=== PATIENT | female | born 1990 | race African-American/Black ===

== ENCOUNTER 2023-05-17 09:59 | Outpatient (CLI) | payer BC, SELFPAY ==
[2023-05-17 14:55] LABS: Chlamydia DNA Amplified* NOT DETECTED (No Detected); GC DNA Amplified* NOT DETECTED (No Detected)
== END 2023-05-17 10:00 | disposition home or self-care (01) ==
PROVIDERS: Visit Provider Physician Assistant
DX: Z11.3 Encounter for screening for infections with a predominantly sexual mode of transmission (principal)
CPT/HCPCS: 86592; 86703; 86803; 87340; 87491; 87591

== ENCOUNTER 2023-06-01 10:30 | Outpatient (CLI) | payer BC, SELFPAY ==
--- NOTE | 2023-06-01 10:45 | US_ITS ---
Patient: NEELAM TORREZ Facility:?[facility] Patient ID:?[id number] Site Patient ID:?[id number]. Site :?[id number] Study:?US-Pelvis TA/TV-06/01/2023 11:37:14 AM Ordering Physician:MYA Final Report: INDICATION: Menorrhagia COMPARISON: none TECHNIQUE: 2D finn scale and color Doppler images were acquired of the pelvis using a transabdominal and transvaginal approach. FINDINGS: Multiple exophytic/partially exophytic fundal fibroids are present measuring 4.5 x 4.2 x 4.3 cm on the right, 3.4 x 2.9 x 3.2 cm on the left and 2.1 x 1.7 x 2.1 in the midline. Additional left posterior lower uterine segment submucosal fibroid is present measuring 2.9 x 2.5 x 2.6 cm. Uterus measures 8.7 cm in length by 5.1 cm in AP diameter by 4.8 cm in transverse dimension. The endometrial lining measures 11 mm in composite thickness. The right ovary measures 3.6 x 2.2 x 2.6 cm in size and the left ovary measures 3.1 x 1.9 x 1.6 cm. The ovaries demonstrate normal arterial and venous blood flow on color Doppler analysis. There are no suspicious fluid collections within the cul-de-sac. IMPRESSION: Multiple uterine fibroids measuring up to 4.5 cm. 2.9 cm left posterior lower uterine segment submucosal fibroid is also present. Endometrial thickness 11 millimeters. Dictated by Nathanael Barriga MD @ 06/01/2023 12:44:44 PM Signed by:?Nathanael Barriga MD @06/01/2023 12:44:44 PM (Electronic Signature)
== END 2023-06-01 10:31 | disposition home or self-care (01) ==
LOC: US 10:30
PROVIDERS: Visit Provider Physician Assistant
DX: N92.1 Excessive and frequent menstruation with irregular cycle (principal); D25.0 Submucous leiomyoma of uterus; R93.89 Abnormal findings on diagnostic imaging of other specified body structures; N97.9 Female infertility, unspecified
CPT/HCPCS: 76830; 76856

== ENCOUNTER 2023-06-15 10:16 | Outpatient (CLI) | payer BC, SELFPAY | END 2023-06-15 10:17 | disposition home or self-care (01) | LOC: NFLDREF 06-16 08:00 | PROVIDERS: Visit Provider Obstetrics & Gynecology | DX: N97.9 Female infertility, unspecified (principal) | CPT/HCPCS: 82670; 83001; 83002; 84146; 84443 ==

== ENCOUNTER 2023-06-28 10:33 | Outpatient (CLI) | payer BC, SELFPAY | END 2023-06-28 10:34 | disposition home or self-care (01) | PROVIDERS: PCP Physician Assistant; Visit Provider Physician Assistant | DX: N97.9 Female infertility, unspecified (principal) | CPT/HCPCS: 83498; 84270; 84402; 84403 ==

== ENCOUNTER 2023-07-16 06:14 | Day surgery (SDC) | payer BC, SELFPAY ==
[2023-07-16] MEDS: LACTATED RINGERS 1000 ML 1,000 ML 100 ML IV (06:15)
[2023-07-16 06:25] VITALS: BP 146/100; PULSE 87; RESP 16; TEMP 37; O2SAT 98; BMI 43.9
[2023-07-16] MEDS: SODIUM CHLORIDE 0.9 % (FLUSH) 10 ML SYRINGE IVF (06:33)
[2023-07-16 06:51] LABS: Ur HCG Qualitative* Negative (Negative)
--- NOTE | 2023-07-16 07:19 | PM.PROC ---
Procedure Note Time Seen by Provider: 07:59 Date Seen: 07/16/23 Date of procedure: 07/16/[address] [facility] bill your pro fee for this procedure?: Yes Procedure: Preoperative diagnosis: 33 year-old nulligravid woman with uterine fibroids Postoperative diagnosis: Same Procedure: Hysteroscopy, Dilation and Curettage using the Truclear incisor Anesthesia: Conscious sedation, paracervical block. Surgeon: Alison Fischer MD Grievance And Appeals Specialist: None Estimated blood loss: 3 mL IV Fluid: 400 mL Specimen: Endometrial curettings to pathology. Findings: Exam under anesthesia: Uterus: anteverted position, less than 10-12 week sized, mobile, with no masses or nodularity palpable. Uterus sounded to 10 cm. No adnexal masses or nodularity palpable. On hysteroscopy: Appeared normal. There was no evidence of uterine fibroid in the submucosa which was unexpected by ultrasound findings. Procedure: The patient was taken to the operating operating room more conscious sedation was found to be adequate. The patient was placed on in the dorsal lithotomy position and an exam under anesthesia was performed with findings stated above. She was then prepped and draped in a normal sterile manner. A bivalve speculum was placed in the vagina. The cervix appears nulliparous. Otherwise no abnormalities. The paracervical block was placed using 0.5% Marcaine, 5 mL was injected at the 4 and 8 o'clock positions on the cervix. The anterior lip of the cervix was grasped with a single-tooth tenaculum. The cervix dilated to Hegar 6. The uterus sounded to 10 cm. The Truclear hysteroscope was advanced into the uterus. A diagnostic hysteroscopy was performed with normal saline as the insufflation medium. Findings are stated above. The Truclear incisor was then advanced through the camera. The curettage was performed with the incisor over an approximately 1 minute. The incisor was then removed. The endometrial cavity appeared normal. Saline deficit at the end of the procedure 245 mL. Total saline used 50 mL. The hysteroscope, single-toothed tenaculum and speculum were removed from the vaginal canal.Silver nitrate was used to obtain hemostasis. The patient tolerated the procedure well. Sponge, lap and instrument counts were correct x2 at the end of the procedure. The patient was taken to the recovery area in stable condition.
[2023-07-16] MEDS: CEFAZOLIN 2 GM INJ IVP (07:40)
[2023-07-16] MEDS: BUPIVACAINE 0.5% 30 ML INJECTION (07:44)
[2023-07-16] MEDS: SILVER NITRATE APPLICATOR 1 EACH STICK..EA. TOPICAL (07:52)
--- NOTE | 2023-07-16 08:05 | W.ANESCHARGE ---
Anesthesia Charges Start Date/Time Anesthesia Start Date: 07/16/23 Anesthesia Start Time: 07:14 Stop Date/Time Anesthesia Stop Date: 07/16/23 Anesthesia Stop Time: 08:03
[2023-07-16 08:09] VITALS: BP 144/99; PULSE 86; RESP 16; TEMP 36.1; O2SAT 100
--- NOTE | 2023-07-16 08:13 | W.ANESCHARGE ---
Anesthesia Charges Start Date/Time Anesthesia Start Date: 07/16/23 Anesthesia Start Time: 07:14 Stop Date/Time Anesthesia Stop Date: 07/16/23 Anesthesia Stop Time: 08:03
[2023-07-16 08:15] VITALS: BP 143/98; PULSE 87; RESP 16; O2SAT 100
[2023-07-16 08:36] VITALS: BP 134/87; PULSE 86; RESP 16; O2SAT 100
== END 2023-07-16 08:58 | disposition home or self-care (01) ==
LOC: OR 06:14
PROVIDERS: Visit Provider Obstetrics & Gynecology
PROC: 0UDB8ZZ Extraction of Endometrium, Via Natural or Artificial Opening Endoscopic (ICD-10-PCS; CPT 58558; principal; 2023-07-16 07:15)
DX: N92.1 Excessive and frequent menstruation with irregular cycle (principal); N97.8 Female infertility of other origin; E66.01 Morbid (severe) obesity due to excess calories; Z68.41 Body mass index [BMI] 40.0-44.9, adult; I10 Essential (primary) hypertension
CPT/HCPCS: 58558; 00952; 36415; 81025; 85018; 86850; 86900; 86901; 88305; A9270; J0665; J0690; J1100; J1885; J2250; J2405; J3010; J7120

== ENCOUNTER 2023-07-30 10:32 | Outpatient (CLI) | payer BC, SELFPAY | END 2023-07-30 10:33 | disposition home or self-care (01) | LOC: NFLDREF 10:33 | PROVIDERS: PCP Obstetrics & Gynecology; Visit Provider Obstetrics & Gynecology | DX: N97.0 Female infertility associated with anovulation (principal) | CPT/HCPCS: 83520 ==

== ENCOUNTER 2023-08-27 10:54 | Outpatient (CLI) | payer BC, SELFPAY ==
--- NOTE | 2023-08-27 11:15 | CRLHL7_ITS ---
For Patients: As a result of the Century Cures Act, medical imaging exams and procedure reports are released immediately into your electronic medical record. You may view this report before your referring provider. If you have questions, please contact your health care provider. Indication: Infertility Technique: Routine hysterosalpingogram performed. Fluoroscopic time 51 seconds. IMPRESSION: Normal patency of the right fallopian tube with spillage into the peritoneal cavity. Left fallopian tube not visualized. Small filling defects appear to be present within the left cornua. Dictated by Nathanael Barriga MD @ 08/30/2023 7:11:35 AM (Electronically Signed)
--- NOTE | 2023-08-27 12:08 | P.PCN_ITS ---
Procedure Note Time Seen by Provider: 11:30 Date Seen: 08/27/23 Will [facility] bill your pro fee for this procedure?: Yes Procedure Description: DATE: 08/27/23 PREPROCEDURE DIAGNOSIS: Infertility POSTPROCEDURE DIAGNOSIS: 1. Infertility 2. Patent right fallopian tube. Blocked left fallopian tube NAME OF PROCEDURE: Hysterosalpingogram. ANESTHESIA: None. COMPLICATIONS: None. PROCEDURE: UPT negative today. After obtaining verbal consent, the patient was placed in the dorsal lithotomy position on the x-ray table. An open-sided bivalve speculum was introduced into the vagina and the cervix easily visualized. The cervix and vagina were then prepped with Betadine. The anterior lip of the cervix was grasped with a single-tooth tenaculum for traction. Os binder/cervical dilator used: No. A balloon tipped double-lumen catheter was then gently inserted through the cervical opening into the uterine cavity to the level of the fundus. The balloon was insufflated with 3 mL of air. The tenaculum and speculum were removed. The patient was repositioned in the supine position, covered, and the radiologist was called to the room. A hysterosalpingogram was then performed. A total of 30 cc of Optiray 300 water soluble contrast dye was injected through the double-lumen catheter under moderate pressure. There was immediate fill of the uterine cavity to the cornua and immediate fill of right fallopian tubes and free spillage of dye on right side. Blocked/filling defect of left fallopian tube. The balloon was deflated. The catheter was removed. The patient tolerated the procedure well, though she did have moderate cramping discomfort during and just after the procedure. She was discharged to home in stable condition and make an appointment with her physician to review all of her lab results and procedure results.
== END 2023-08-27 10:55 | disposition home or self-care (01) ==
PROVIDERS: PCP Family Medicine; Visit Provider Obstetrics & Gynecology
DX: N97.0 Female infertility associated with anovulation (principal)
CPT/HCPCS: 58340; 74740; A4649; Q9967

== ENCOUNTER 2024-01-20 09:46 | Outpatient (CLI) | payer BC, SELFPAY | END 2024-01-20 09:47 | disposition home or self-care (01) | PROVIDERS: PCP Family Medicine; Visit Provider Physician Assistant Medical | DX: I10 Essential (primary) hypertension (principal); R82.90 Unspecified abnormal findings in urine; Z13.220 Encounter for screening for lipoid disorders | CPT/HCPCS: 80053; 80061; 87086 ==

== ENCOUNTER 2024-08-10 10:02 | Outpatient (CLI) | payer BC, SELFPAY | END 2024-08-10 10:03 | disposition home or self-care (01) | PROVIDERS: PCP Physician Assistant Medical; Visit Provider Obstetrics & Gynecology | DX: R63.5 Abnormal weight gain (principal) | CPT/HCPCS: 84443 ==

== ENCOUNTER 2024-09-26 09:08 | Outpatient (CLI) | payer BC, SELFPAY | END 2024-09-26 09:09 | disposition home or self-care (01) | LOC: NFLDREF 09-28 14:40 | PROVIDERS: PCP Physician Assistant Medical; Referring Provider Physician Assistant Medical; Visit Provider Obstetrics & Gynecology | DX: E03.8 Other specified hypothyroidism (principal) | CPT/HCPCS: 84443; 86376 ==

== ENCOUNTER 2024-10-03 06:04 | Day surgery (SDC) | payer BC, SELFPAY ==
[2024-10-03] VITALS (19 sets, daily range): BP systolic 115–151; BP diastolic 50–113; PULSE 59–84; RESP 10–16; TEMP 36.2–36.8; O2SAT 93–100; BMI 44.0
[2024-10-03] MEDS: SODIUM CHLORIDE 0.9 % (FLUSH) 10 ML SYRINGE IVF (06:51)
[2024-10-03] MEDS: LACTATED RINGERS 1000 ML 1,000 ML 100 ML IV ×2 (06:52→09:38)
[2024-10-03 07:00] LABS: Ur HCG Qualitative* Negative (Negative)
--- NOTE | 2024-10-03 07:16 | W.PM.H&PU ---
History & Physical Update History & Physical Update H&P Reviewed and patient assessed: No changes noted
[2024-10-03] MEDS: BUPIVACAINE 0.25% 30 ML INJECTION (08:05)
[2024-10-03] MEDS: METHYLENE BLUE 1 % 10 ml 100 MG INJECTION ×2 (08:15→08:43)
[2024-10-03] MEDS: LIDOCAINE 1% MDV 20 ML INJECTION (09:10)
--- NOTE | 2024-10-03 09:23 | P.GYNPRC_ITS ---
Procedure Note Date of procedure: 10/03/24 Will [facility] bill your pro fee for this procedure?: Yes Pre-op diagnosis: Secondary infertility Uterine fibroids Intrauterine filling defect and no patency of right Fallopian tube demonstrated on most recent hysterosalpingogram Post-op diagnosis: Secondary infertility Large uterine fibroids Normal appearance to endometrial cavity Patent left Fallopian tube Non-patient right Fallopian tube with no external abnormality noted Procedure: Diagnostic hysteroscopy Diagnostic laparoscopy with chromopertubation Anesthesia: GETA Complications: None Surgeon: Priscila Degroot MD Eyeglass Lens Cutter: Faviola Dias Estimated blood loss (mL): 5 IV fluids (mL): 800 Urine Output (mL): 1,000 Pathology: none sent Condition: stable Disposition: same day Findings: 1. Upon pelvic exam under anesthesia, the cervix and vagina were normal in appearance. Uterus was mobile but otherwise difficult to evaluate due to patient habitus. 2. Upon hysteroscopy, there was a normal appearance to the endocervix and endometrial cavity. The endometrium was uniform in appearance. 3. Upon laparoscopy, survey of the upper abdomen revealed a normal appearance to the inferior edge of the liver, gallbladder and stomach. Bowels were grossly normal appearance, as was the appendix. Survey of the pelvis revealed enlarged uterus with multiple fibroids; the largest two were fundal in location and were roughly 7-8 cm in greatest dimension. There were also smaller subserosal fibroids on the anterior mid-uterus. Bilateral tubes were externally normal in appearance, though there was no patency of the right Fallopian tube noted on chromopertubation. Left Fallopian tube was patent on chromopertubation. Bilateral ovaries were externally normal in appearance, as were bilateral ovarian fossa. The cul-de-sac and bladder reflection were normal in appearance. Procedure Description: Patient was taken to the operating room with IV running. She was positioned in dorsal lithotomy position with her legs fully supported in Yellofin stirrups. General anesthesia was administered. She was prepped and draped in the usual sterile fashion. Exam under anesthesia was performed for the above-noted findings. Speculum was inserted. Cervix visualized and grasped along the anterior lip with a single-tooth tenaculum. The TRUCLEAR hysteroscope was assembled with saline inflow and outflow in place. The line was flushed of bubbles. The hysteroscope was advanced through the cervix into the endometrial cavity for the above noted findings. The hysteroscope and morcellator was removed from the uterus. The hysterosalpingogram catheter was passed through the cervix into the endometrial cavity and the balloon tip was inflated with saline, holding this in place. A 60 cc syringe was filled with saline dyed with a small amount of methylene blue and held for later use. Speculum was removed from the vagina. Villalobos catheter was placed. Patient's legs were placed in neutral position. Attention was turned to patient's abdomen. The infraumbilical area was infiltrated with small amount of Marcaine. An infraumbilical incision was made with a scalpel and carried through to the underlying layer of fascia with a hemostat. The 5 mm Fios Kii trocar was assembled with laparoscope within, and insufflator attached. While tenting up the abdomen manually, the trocar was passed through the anterior abdominal wall into the peritoneal cavity. Trocar was removed. Pneumoperitoneum was achieved. Survey of abdomen and pelvis revealed the above-noted findings. Three additional port sites were created. The first was in the patient's left lower quadrant, just superior medial to the left ASIS. The second was a hand's breath superior to and slightly medial to the first. The third was in the patient's right lower quadrant, just superior medial to the right ASIS. Each was infiltrated with small amount of Marcaine prior to incision. A 5 mm incision was made at each site, making sure the large vessels were out of harm's way. A 5 mm Fios Kii port was inserted at each site, under direct visualization and without complication. The balloon on each of the four ports was inflated, holding each in place. There was a small omental adhesion to the left anterior pelvis which was lysed sharply to aid in manipulation of the uterus. The pelvis was fully visualized with findings as noted above; the uterus had to be manipulated to allow for full visualization of each tube. The right tube was located behind the largest fibroid, and was brought up to the pelvic sidewall, assuring that it was not under pressure during the chromopertubation to follow. Thereafter, the hysterosalpingogram catheter was flushed with a total of 40 mL of dyed fluid. The left tube exhibited patency, but the right again did not. The tube appeared to swell up into the fimbriated edge, but the fluid did not spill out. Again, there was not a hydrosalpinx or any other obvious external anatomic defect noted. The balloons of each port site were deflated. Pneumoperitoneum was released and ports were removed. The skin of each port site was closed with a subcuticular stitch of 4-0 Monocryl. The HSG catheter was removed from the uterus and the tenaculum was removed from the cervix. The Villalobos catheter was removed. Patient tolerated procedure well and was taken to recovery area in stable condi tion.
--- NOTE | 2024-10-03 09:24 | SUR.OPER ---
deficit = 95
--- NOTE | 2024-10-03 09:25 | P.ANES_ITS ---
Anesthesia Charges Start Date/Time Anesthesia Start Date: 10/03/24 Anesthesia Start Time: 07:39 Stop Date/Time Anesthesia Stop Date: 10/03/24 Anesthesia Stop Time: 09:18 Coding CPT Codes CPT Codes: ANESTH SURG LOWER ABDOMEN - 25958 ([id number]) P3 - PATIENT W/SEVERE SYS DISEASE, QK - CONCRETE PAVEMENT INSTALLER 2-4 CNCRNT ANES PROC, QX - RECEIVING SUPERVISOR SVC W/ MD MED DIRECTION
--- NOTE | 2024-10-03 09:25 | W.ANESCHARGE ---
Anesthesia Charges Start Date/Time Anesthesia Start Date: 10/03/24 Anesthesia Start Time: 07:39 Stop Date/Time Anesthesia Stop Date: 10/03/24 Anesthesia Stop Time: 09:18 Coding CPT Codes CPT Codes: ANESTH SURG LOWER ABDOMEN - 22212 ([id number]) P3 - PATIENT W/SEVERE SYS DISEASE, QK - HIGH SCHOOL ASSISTANT PRINCIPAL 2-4 CNCRNT ANES PROC, QX - INSOLE RASPER SVC W/ MD MED DIRECTION
--- NOTE | 2024-10-03 10:16 | P.ANES_ITS ---
Anesthesia Charges Start Date/Time Anesthesia Start Date: 10/03/24 Anesthesia Start Time: 07:39 Stop Date/Time Anesthesia Stop Date: 10/03/24 Anesthesia Stop Time: 09:18 Coding CPT Codes CPT Codes: ANESTH SURG LOWER ABDOMEN - 97560 ([id number]) QK - MMI TEACHER 2-4 CNCRNT ANES PROC, QX - GRAPHITE PAN DRIER TENDER SVC W/ MD MED DIRECTION, P3 - PATIENT W/SEVERE SYS DISEASE
--- NOTE | 2024-10-03 10:16 | W.ANESCHARGE ---
Anesthesia Charges Start Date/Time Anesthesia Start Date: 10/03/24 Anesthesia Start Time: 07:39 Stop Date/Time Anesthesia Stop Date: 10/03/24 Anesthesia Stop Time: 09:18 Coding CPT Codes CPT Codes: ANESTH SURG LOWER ABDOMEN - 24518 ([id number]) QK - EMBLEM DRAWER IN 2-4 CNCRNT ANES PROC, QX - BOTTOM LOADER SVC W/ MD MED DIRECTION, P3 - PATIENT W/SEVERE SYS DISEASE
[2024-10-03] MEDS: ONDANSETRON 2 MG/ML inj 4 MG IVP (11:17)
[2024-10-03] MEDS: ACETAMINOPHEN 500 MG TABLET 1000 MG PO (11:32)
== END 2024-10-03 13:38 | disposition home or self-care (01) ==
LOC: OR 06:06
PROVIDERS: PCP Physician Assistant Medical; Visit Provider Obstetrics & Gynecology
PROC: (CPT 58661; principal; 2024-10-03 07:15)
PROC: (CPT 49320; 2024-10-03 07:15)
PROC: 0UDB8ZZ Extraction of Endometrium, Via Natural or Artificial Opening Endoscopic (ICD-10-PCS; CPT 58558; 2024-10-03 07:15)
DX: N97.1 Female infertility of tubal origin (principal); N97.8 Female infertility of other origin; D25.2 Subserosal leiomyoma of uterus
CPT/HCPCS: 58555; 49320; 58350; 00840; 36415; 81025; 86850; 86900; 86901; J2003; A9270; J0665; J1100; J1885; J2250; J2405; J2704; J2710; J3010; J7120

== ENCOUNTER 2024-12-13 11:14 | Outpatient (CLI) | payer BC, SELFPAY | END 2024-12-13 11:15 | disposition home or self-care (01) | PROVIDERS: PCP Physician Assistant Medical; Visit Provider Physician Assistant Medical | DX: M54.9 Dorsalgia, unspecified (principal); I10 Essential (primary) hypertension; E66.01 Morbid (severe) obesity due to excess calories; Z68.41 Body mass index [BMI] 40.0-44.9, adult | CPT/HCPCS: 80053; 82607; 82728; 82746; 83540; 83550 ==